=== PATIENT | male | born 1965 ===

== ENCOUNTER 2024-07-14 12:57 | Outpatient (AMB) | payer MEDICARE, MEDICAID, SELFPAY ==
--- NOTE | 2024-07-14 13:11 | MHC.OFFVIS ---
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 The patient states that several years ago he underwent surgery on his right humerus fracture after falling off of his couch. He has had cortisone injections given into his right shoulder which gave him fairly good relief. The most recent injection was approximately 1 year ago. He denies any fevers or chills. He does take Tylenol and anti-inflammatory medicines which gave him mild relief. He has done physical therapy exercises which aggravated his pain. Allergies No Known Allergies Allergy (Verified 07/14/24 13:15) Medication List - Last Reconciled 07/15/24 by Dillan Frances MD acetaminophen 650 mg PO Q6H PRN albuterol sulfate 90 mcg/actuation 2 puffs inhalation Q4H PRN allopurinol 300 mg PO DAILY celecoxib 100 mg PO BID cetirizine (Allergy Relief (cetirizine)) 10 mg PO DAILY PRN colestipol 1 g PO BID diazepam 2 mg PO Q8H PRN furosemide (Lasix) 20 mg PO DAILY guanfacine 0.5 mg PO BEDTIME ketoconazole 2% 1 appl topical DAILY levetiracetam 750 mg PO BID naloxone 4 mg/actuation (Narcan) 4 mg intranasal Q2M PRN oxycodone 2.5 mg PO Q6H PRN pantoprazole 40 mg PO DAILY pregabalin 25 mg PO TID rifaximin 550 mg PO BID risperidone 2 mg PO DAILY sertraline 150 mg PO DAILY spironolactone 12.5 mg PO DAILY PFSH Social History (Updated 07/14/24 @ 13:16 by CATINA Aragon) Alcohol intake: never Patient Tobacco Use Status: Current everyday Tobacco user Tobacco use type: Cigarette Physical Exam Const Other: Well-nourished well-developed very friendly male awake alert and oriented x3 in no acute distress Extrem Other: Right shoulder examination shows decreased range of motion when compared to his left shoulder, 3/5 strength with supraspinatus testing, positive impingement signs, no instability Office Procedures AMB Joint Injection/Aspiration Joint Injection/Aspiration Primary Site: right shoulder Prep: site was prepped using aseptic technique Injected: 40 mg of, DepoMedrol and 1% plain lidocaine Procedure: The patient tolerated the procedure well Coding 95045 - Large joint Procedure code (CPT) selection complete Results Reviewed Results Reviewed: X-rays of the patient's right shoulder show severe acromioclavicular joint narrowing, a type 2 acromion, a proximal humerus fracture plate in good position with no signs of loosening, a healed humeral shaft fracture Assessment & Plan Assessment & Plan (1) Impingement of right shoulder: Code(s): M25.811 - Other specified joint disorders, right shoulder Category: Medical Plan Mr. Botello presents with right shoulder pain due to impingement syndrome and possible chronic rotator cuff tearing. I had a lengthy discussion with the patient regarding the treatment options. He wishes to hold off on surgery if at all possible. I agree with this plan. The risks and benefits of a right shoulder cortisone injection were discussed at length with the patient. The patient wished to proceed. He tolerated injection well. He will continue with his home stretching program. Will contact me prior to his follow-up appointment in 3 months should any questions or concerns arise. I spent 22 minutes in reviewing the patient's records and imaging studies, seeing the patient and documenting in the medical record. Orders: Orders AMB Joint Injection/Aspiration 07/14/24 M25.811 - Other specified joint disorders, right shoulder Coding Level of Care Code New Pt Level 3 (62029) Complex EM visit Add On G2211 Diagnoses Impingement of right shoulder M25.811 CPT Codes Coding - 35361 Large joint: 87250 - Large joint ([id number])
== END 2024-07-14 13:37 | disposition home or self-care (01) ==
PROVIDERS: Visit Provider Orthopaedic Surgery
DX: M25.811 Other specified joint disorders, right shoulder (principal)
CPT/HCPCS: 20610; 99203

== ENCOUNTER 2024-10-02 11:02 | Emergency (ER) | payer MEDICARE, MEDICAID, SELFPAY ==
--- NOTE | ~2024-10-02 | CT_ITS ---
CLINICAL HISTORY: AMS CT head without contrast Comparison: None Findings: No intra-axial mass, midline shift, hydrocephalus, or acute hemorrhage. There is moderate to severe cortical atrophy. Mild microvascular changes in the periventricular white matter. The visualized paranasal sinuses and mastoid air cells are normal. The orbits are within normal limits. No skull fracture. IMPRESSION: 1. No acute intracranial findings. This document has been electronically signed by: Felipe Rose MD on 10/02/2024 13:06:33
[2024-10-02 11:05] VITALS: BP 101/70; PULSE 88; O2SAT 94
[2024-10-02 11:26] VITALS: BP 110/74; PULSE 63; RESP 18; O2SAT 95; BMI 34.2
--- NOTE | 2024-10-02 11:27 | ECG_ITS ---
Test Reason : AMS Blood Pressure : */* mmHG Vent. Rate : 59 BPM Atrial Rate : 59 BPM P-R Int : 156 ms QRS Dur : 108 ms QT Int : 382 ms P-R-T Axes : 68 -49 31 degrees QTcB Int : 378 ms Sinus bradycardia Low voltage QRS Right bundle branch block Left anterior fascicular block Bifascicular block Abnormal ECG No previous ECGs available Referred By: Pradeep Aguilar Electronically Signed By: Memo Washington
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
[2024-10-02 11:55] LABS: Imm Gran Abs Auto 0.02 X10*3/uL (0.00-0.03); Imm Gran Pct Auto 0.3 % (0.0-0.4); MANUAL DIFF FLAG SCAN; PLT CLUMP 1; SCAN SMEAR FLAG 1
[2024-10-02 11:56] LABS: Ammonia 49 umol/L (13-55); Basophils Percent Auto 0.7 % (0-2); Eosinophils Absolute Auto 0.1 X10*3/uL (0.0-0.4); Eosinophils Percent Auto 1.6 % (0-4); Hemoglobin 14.5 g/dl (14.0-18.0); Lymphocytes Absolute Auto 0.9 X10*3/uL (1.2-4.9); Lymphocytes Percent Auto 15.5 % (20-40); Mean Corpuscular HGB Conc 33.7 g/dl (31.0-36.0); Mean Corpuscular Hemoglobin 31.5 pg (27.0-33.0); Mean Corpuscular Volume 93.3 fL (80.0-98.0); Mean Platelet Volume 10.4 fL (9.4-12.4); Monocytes Absolute Auto 0.5 X10*3/uL (0.1-1.2); Monocytes Percent Auto 8.3 % (2-11); Neutrophils Absolute Auto 4.2 x10*3/uL (2.0-8.3); Neutrophils Percent Auto 73.6 % (45-73); Red Blood Count 4.61 X10*6/uL (4.60-5.80); Red Cell Distribution Width 13.5 % (11.0-16.0)
[2024-10-02 11:59] LABS: Platelet Count 95 X10*3/uL (160-400); White Blood Count 5.8 X10*3/uL (4.8-10.8)
[2024-10-02 12:00] LABS: Appearance Urine Clear; Color Urine Yellow; Glucose Urine UA Negative (Negative); Leukocyte Esterase Urine Negative (Negative); Nitrite Urine Negative (Negative); Urine Blood Negative (Negative); Urine Ketones Negative (Negative); Urine Protein Negative (Neg-Trace)
[2024-10-02 12:05] LABS: Bacteria Urine None Seen (None Seen); Hyaline Casts Urine 0-2 /LPF (0-2); RBC Urine 0-2 /HPF (0-2); Squamous Epithelial Cell Urine 0-2 /HPF (0-2); WBC Urine 0-5 /HPF (0-5)
[2024-10-02 12:07] LABS: SLIDE REVIEW VERIFIED
[2024-10-02] MEDS: 0.9 % Sodium Chloride 1,000 ML 999 ML IVCONT (12:35)
[2024-10-02 13:18] LABS: Alanine Aminotransferase 13 U/L (0-40); Alkaline Phosphatase 97 U/L (39-117); Anion Gap 10 (12-20); Aspartate Amino Transferase 24 U/L (5-37); Bilirubin Total 0.5 mg/dL (0.0-1.0); Blood Urea Nitrogen 19 mg/dL (9-16); Calcium 8.6 mg/dL (8.4-10.2); Carbon Dioxide 28 mmol/L (22-29); Chloride 109 mmol/L (96-108); Creatinine Clr Calc Pharmacy 90.1; Estimated Glomerular Filt Rate > 60; Glucose Random 90 mg/dL (60-115); Sodium 142 mmol/L (135-145); Total Protein 6.8 g/dL (6.5-8.0)
[2024-10-02 13:25] LABS: Troponin-I High Sensitivity 2.8 ng/L (<3.5-35.0)
[2024-10-02 13:34] VITALS: TEMP 36.2
--- NOTE | 2024-10-02 14:17 | PC.NURSE ---
Report given to horacio RAMIREZ at [facility] in [place], aware that patient will be returning
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
[2024-10-02 15:03] VITALS: BP 110/74; PULSE 63; RESP 18; TEMP 36.2; O2SAT 95
== END 2024-10-02 15:05 ==
PROVIDERS: Emergency Provider Emergency Medicine; PCP Hospitalist
DX: R41.82 Altered mental status, unspecified (principal); I45.10 Unspecified right bundle-branch block; I44.4 Left anterior fascicular block; F17.210 Nicotine dependence, cigarettes, uncomplicated; Z79.899 Other long term (current) drug therapy
CPT/HCPCS: 36415; 70450; 80053; 81001; 82140; 84484; 85025; 93005; 96360; 99284; 99285

== ENCOUNTER → 2024-10-02 11:26 | Outpatient (BNV) | payer MEDICARE, MEDICAID, SELFPAY | PROVIDERS: Emergency Provider Emergency Medicine; PCP Hospitalist; Visit Provider Radiology Diagnostic Radiology | DX: R41.82 Altered mental status, unspecified (principal) | CPT/HCPCS: 70450 ==

== ENCOUNTER → 2024-10-02 11:27 | Outpatient (BNV) | payer MEDICARE, MEDICAID, SELFPAY | PROVIDERS: Emergency Provider Emergency Medicine; PCP Hospitalist; Visit Provider Internal Medicine Cardiovascular Disease | DX: I45.2 Bifascicular block (principal); R00.1 Bradycardia, unspecified | CPT/HCPCS: 93010 ==

== ENCOUNTER 2024-10-13 11:25 | Outpatient (AMB) | payer MEDICARE, MEDICAID, SELFPAY ==
[2024-10-13 11:27] VITALS: BMI 34.1
--- NOTE | 2024-10-13 11:27 | MHC.OFFVIS ---
Vital Signs 10/13/24 11:27 Height 5 ft 9 in Weight 231 lb BMI 34.1 Intake Visit Reasons: Right shoulder pain Intake Note: Amado is a 58 year old male who presents today as a new patient for evaluation of his right shoulder. The patient states that several years ago he underwent surgery on his right humerus fracture after falling off of his couch. He has had cortisone injections given into his right shoulder which gave him fairly good relief. The most recent injection was approximately 1 year ago. He denies any fevers or chills. He does take Tylenol and anti-inflammatory medicines which gave him mild relief. He has done physical therapy exercises which aggravated his pain. He has had cortisone injections in the past. The most recent injection gave him fairly good relief. He wishes to hold off on surgery if at all possible. Allergies ARIANNA Inhibitors Allergy (Verified 10/02/24 11:29) Unknown gemfibrozil Allergy (Verified 10/02/24 11:29) Unknown paroxetine Allergy (Verified 10/02/24 11:29) Unknown quetiapine Allergy (Verified 10/02/24 11:29) Unknown Medication List - Last Reconciled 10/13/24 by Dillan Frances MD acetaminophen 650 mg PO Q6H PRN albuterol sulfate 90 mcg/actuation 2 puffs inhalation Q4H PRN allopurinol 300 mg PO DAILY celecoxib 100 mg PO BID cetirizine (Allergy Relief (cetirizine)) 10 mg PO DAILY PRN colestipol 1 g PO BID diazepam 2 mg PO Q8H PRN furosemide (Lasix) 20 mg PO DAILY guanfacine 0.5 mg PO BEDTIME ketoconazole 2% 1 appl topical DAILY levetiracetam 750 mg PO BID naloxone 4 mg/actuation (Narcan) 4 mg intranasal Q2M PRN oxycodone 2.5 mg PO Q6H PRN pantoprazole 40 mg PO DAILY pregabalin 25 mg PO TID rifaximin 550 mg PO BID risperidone 2 mg PO DAILY sertraline 150 mg PO DAILY spironolactone 12.5 mg PO DAILY PFSH Social History Alcohol intake: former Patient Tobacco Use Status: Current everyday Tobacco user Tobacco use type: Cigarette Physical Exam Vital Signs: BMI result Body Mass Index 34.1 Const Other: Well-nourished well-developed very friendly male awake alert and oriented x3 in no acute distress Extrem Other: Right shoulder examination shows decreased range of motion when compared to his left shoulder, positive impingement signs, pain with range of motion, no instability Office Procedures AMB Joint Injection/Aspiration Joint Injection/Aspiration Primary Site: right shoulder Prep: site was prepped using aseptic technique Injected: 40 mg of, DepoMedrol and 1% plain lidocaine Procedure: The patient tolerated the procedure well Coding - Large joint Procedure code (CPT) selection complete Assessment & Plan Assessment & Plan (1) Impingement of right shoulder: Code(s): M25.811 - Other specified joint disorders, right shoulder Category: Medical (2) Right shoulder pain: Code(s): M25.511 - Pain in right shoulder Plan Mr. Botello presents with right shoulder pain due to impingement syndrome. The risks and benefits of a right shoulder cortisone injection were discussed at length with the patient. The patient wished proceed. He tolerated the injection well. He will continue with his home stretching program. He will contact me prior to his follow-up appointment in 3 months should any questions or concerns arise. I spent 20 minutes in reviewing the patient's records and imaging studies, seeing the patient and documenting in the medical record. Orders: Orders AMB Joint Injection/Aspiration Today M25.811 - Other specified joint disorders, right shoulder Coding Level of Care Code Est Pt Level 3 (58288) Complex EM visit Add On G2211 Diagnoses Impingement of right shoulder M25.811 Right shoulder pain M25.511 CPT Codes Coding - Large joint: 69652 - Large joint ([id number])
== END 2024-10-13 12:02 | disposition home or self-care (01) ==
LOC: HO.HOS 11:26
PROVIDERS: Visit Provider Orthopaedic Surgery
DX: M25.811 Other specified joint disorders, right shoulder (principal); M25.511 Pain in right shoulder
CPT/HCPCS: 20610; 99213

== ENCOUNTER → 2024-10-13 11:25 | Outpatient (BNVA) | payer MEDICARE, MEDICAID, SELFPAY | PROVIDERS: Visit Provider Orthopaedic Surgery | DX: M25.811 Other specified joint disorders, right shoulder (principal); M25.511 Pain in right shoulder | CPT/HCPCS: 20610; 99212; J1010; J2003 ==